=== PATIENT | male | born 1955 | race Hispanic/Latino ===

== ENCOUNTER 2017-07-24 12:15 | Emergency (ER) | payer BC ==
[2017-07-24 12:25] VITALS: BMI 32.8
[2017-07-24 12:33] VITALS: PULSE 87; TEMP 98.9; O2SAT 97
[2017-07-24] MEDS ORDERED: Sodium Chloride 0.9% 1,000 ML IV STA (12:49)
--- NOTE | 2017-07-24 12:54 | ED PDOC ---
Arrival/HPI - General Chief Complaint: GI Problem Time Seen by Provider: 07/24/17 12:29 Historian: Patient - History of Present Illness Narrative History of Present Illness (Text): you were treated in the ED today for eating a lot of spinich a few days ago with dry retching, then noted right lower back pain with blood in urine and fatigue otherwise without any nausea/vomiting/headache/dizziness/difficulty breathing/chest pain/abdomen pain/numbness/tingling/loss of limb or bowel or bladder function/pain with urination/trauma/injury/neck pain/loss of consciousness. refused sexual disease testing or treatment. 07/24/17 12:51 Time/Duration: 1 week Symptom Onset: Gradual Symptom Course: Unchanged Quality: Aching Severity Level: 1 Activities at Onset: Rest Context: Sitting Past Medical History - Provider Review Nursing Documentation Reviewed: Yes - Travel History Have you recently traveled outside [place] w/in the past 3 mons?: No - Renal Hx Kidney Stones: Yes - Psychiatric Hx Substance Use: No - Anesthesia Hx Anesthesia: No Family/Social History - Physician Review Nursing Documentation Reviewed: Yes Family/Social History: No Known Family HX Smoking Status: Never Smoked Hx Alcohol Use: No Hx Substance Use: No Allergies/Home Meds Allergies/Adverse Reactions: Allergies Sulfa (Sulfonamide Antibiotics) Allergy (Verified 07/24/17 12:28) RASH Home Medications: Home Meds Medication Instructions Recorded Confirmed No Known Home Med 07/24/17 07/24/17 Review of Systems - Review of Systems Constitutional: Fatigue Eyes: Normal ENT: Normal Respiratory: Normal Cardiovascular: Normal Gastrointestinal: Normal Genitourinary Male: Hematuria Musculoskeletal: Back Pain Neurological: Normal Endocrine: Normal Hemo/Lymphatic: Normal Psychiatric: Normal Physical Exam Vital Signs Reviewed: Yes Vital Signs Temp Pulse Resp BP Pulse Ox 07/24/17 12:33 98.9 F 87 17 139/86 97 Temperature: Afebrile Blood Pressure: Hypertensive Pulse: Regular Respiratory Rate: Normal Appearance: Positive for: Well-Appearing, Non-Toxic, Comfortable Pain Distress: None Mental Status: Positive for: Alert and Oriented X 3 - Systems Exam Head: Present: Atraumatic, Normocephalic Pupils: Present: PERRL Extroacular Muscles: Present: EOMI Conjunctiva: Present: Normal Ears: Present: Normal Mouth: Present: Moist Mucous Membranes Pharnyx: Present: Normal Nose (External): Present: Atraumatic Nose (Internal): Present: Normal Inspection Neck: Present: Normal Range of Motion Respiratory/Chest: Present: Clear to Auscultation, Good Air Exchange Cardiovascular: Present: Regular Rate and Rhythm Abdomen: No: Tenderness, Distention, Normal Bowel Sounds, Peritoneal Signs, Rebound, Guarding, McBurney's Point Tender, Rovsing's Sign Present, Hernias, Feeding Tubes, Ostomy Tubes, Mass/Organomegaly, Scars, Other Back: Present: Normal Inspection Upper Extremity: Present: Normal Inspection Lower Extremity: Present: Normal Inspection Neurological: Present: GCS=15, CN II-XII Intact, Speech Normal, Motor Func Grossly Intact Skin: Present: Warm, Normal Color Psychiatric: Present: Alert, Oriented x 3, Normal Insight, Normal Concentration Medical Decision Making ED Course and Treatment: you were treated in the ED today for eating a lot of spinich a few days ago with dry retching, then noted right lower back pain with blood in urine and fatigue otherwise without any nausea/vomiting/headache/dizziness/difficulty breathing/chest pain/abdomen pain/numbness/tingling/loss of limb or bowel or bladder function/pain with urination/trauma/injury/neck pain/loss of consciousness. refused sexual disease testing or treatment. You were otherwise breathing easily, smiling and talking easily, good strength/sensation, walking easily, clear lungs, no abdomen tenderness, no spinal or back tenderness/redness , no fever temp 98.9, stable heart rate 87, stable breathing rate 17, excellent oxygen level 97% room air, elevated blood pressure 139/86 which we recommend repeat in 2-3 days primary care office to determine further treatment, you have blood tests no infection count 11, stable blood level hemoglobin 15/platelets 207, stable chemistry, heart blood test negative less than 0.01, urine test no acute sign of infection, radiology ct ap showed no acute abnormality, ECG normal sinus rhythm, intravenous fluids, observation done in the ED with improvement, counselled to drink lots of fluids and monitor urine and thus discharged home . 1. Recommend follow-up primary care 2-3 days to review symptoms, referral to urology to review your symptoms for stated blood in urine and lab test protein in urine to ensure no complications/cancer development, referral to cardiology to review your symptoms, though you have no umbilical pain/tenderness - referral to surgery for small fat containing umbilical hernia to ensure further care. 2. If any worsening pain, fever, chills, nausea, vomiting, difficulty breathing, numbness, loss of limb function, pain with urination or any medical condition then return to the ED. Report Date : 07/24/2017 13:45:49 PROCEDURE: CT Abdomen and Pelvis without intravenous contrast Dictator : Anthony Leavitt MD IMPRESSION: No acute abnormality. No evidence of urinary calculus or urinary tract obstruction. 07/24/17 14:07 07/24/17 14:10 Reassessment Condition: Re-examined, Improved - Lab Interpretations Lab Results: 07/24/17 13:05 07/24/17 13:05 Lab Results 07/24/17 13:05: PT 11.6, INR 1.01, APTT 32.8 07/24/17 13:05: Sodium 143, Potassium 4.7, Chloride 105, Carbon Dioxide 29, Anion Gap 14, BUN 23 H, Creatinine 1.0, Est GFR ( Amer) > 60, Est GFR ( Non-Af Amer) > 60, Random Glucose 105, Calcium 10.1, Magnesium 2.1, Total Bilirubin 0.5, AST 31, ALT 40, Alkaline Phosphatase 77, Lactate Dehydrogenase 456, Total Creatine Kinase 345 H, CK-MB (CK-2) 3.2, CK-MB (CK-2) % Cancelled, Troponin I < 0.01, Total Protein 7.5, Albumin 4.4, Globulin 3.2, Albumin/ Globulin Ratio 1.4, Lipase 85 07/24/17 13:05: Urine Color Yellow, Urine Appearance Clear, Urine pH 6.0, Ur Specific [place] >= 1.030, Urine Protein Trace H, Urine Glucose (UA) Negative, Urine Ketones Negative, Urine Blood Negative, Urine Nitrate Negative, Urine Bilirubin Negative, Urine Urobilinogen 0.2, Ur Leukocyte Esterase Negative, Urine RBC Negative, Urine WBC 1 - 3, Ur Epithelial Cells None, Amorphous Sediment Few, Urine Bacteria Mod, Urine Other Fiber 07/24/17 13:05: WBC 11.8 H, RBC 5.12, Hgb 15.7, Hct 45.4, MCV 88.7, MCH 30.7, MCHC 34.6, RDW 14.7 H, Plt Count 207, MPV 10.8, Gran % 64.9, Lymph % (Auto) 24.6 , [place] % (Auto) 7.8 H, Eos % (Auto) 2.5, Baso % (Auto) 0.2, Gran # 7.64 H, Lymph # (Auto) 2.9, [place] # (Auto) 0.9 H, Eos # (Auto) 0.3, Baso # (Auto) 0.02 I have reviewed the lab results: Yes - RAD Interpretation Radiology Orders: 07/24/17 12:49 ABDOMEN & PELVIS [ABD & PELVIS W/O PO OR IV CONT] [CT] Stat Records Officer: Radiologist (see mdm) - EKG Interpretation Interpreted by ED Physician: Yes (NSR, flippe t waves avr, flattened iii.) Type: 12 lead EKG - Medication Orders Current Medication Orders: Discontinued Medications Sodium Chloride (Sodium Chloride 0.9%) 1,000 mls @ 999 mls/hr IV .Q1H1M STA Stop: 07/24/17 13:49 Last Admin: 07/24/17 13:10 Dose: 999 mls/hr eMAR Start Stop Document 07/24/17 13:10 HI (Rec: 07/24/17 13:10 HI [id number]) Intravenous Solution Start Date 07/24/17 Start Time 13:10 NIHSS Stroke Scale 3 - Date/Time Evaluation Performed Date Performed: 07/24/17 When Was NIHSS Performed: Baseline - How Severe is the Stroke Level of Consciousness: 0=Alert LOC to Questions: 0=Both comments correct LOC to commands: 0=Obeys both correctly Best Gaze: 0=Normal Visual: 0=No visual loss Facial: 0=Normal Motor Arm - Left: 0=No drift Motor Arm - Right: 0=No drift Motor Leg - Left: 0=No drift Motor Leg - Right: 0=No drift Limb Ataxia: 0=Absent Sensory: 0=Normal Best Language: 0=No aphasia Dysarthia: 0=Normal articulation Extinction & Inattention (Neglect): 0=Normal, no object Score: 0 Disposition/Present on Arrival - Present on Arrival Any Indicators Present on Arrival: No History of DVT/PE: No History of Uncontrolled Diabetes: No Urinary Catheter: No History of Decub. Ulcer: No History Surgical Site Infection Following: None - Disposition Have Diagnosis and Disposition been Completed?: Yes Diagnosis: Hematuria Disposition: HOME/ ROUTINE Disposition Time: 14:13 Patient Plan: Discharge Condition: IMPROVED Discharge Instructions (ExitCare): Blood in the Urine (Hematuria), Adult (DC) Additional Instructions: you were treated in the ED today for eating a lot of spinich a few days ago with dry retching, then noted right lower back pain with blood in urine and fatigue otherwise without any nausea/vomiting/headache/dizziness/difficulty breathing/chest pain/abdomen pain/numbness/tingling/loss of limb or bowel or bladder function/pain with urination/trauma/injury/neck pain/loss of consciousness. refused sexual disease testing or treatment. You were otherwise breathing easily, smiling and talking easily, good strength/sensation, walking easily, clear lungs, no abdomen tenderness, no spinal or back tenderness/redness , no fever temp 98.9, stable heart rate 87, stable breathing rate 17, excellent oxygen level 97% room air, elevated blood pressure 139/86 which we recommend repeat in 2-3 days primary care office to determine further treatment, you have blood tests no infection count 11, stable blood level hemoglobin 15/platelets 207, stable chemistry, heart blood test negative less than 0.01, urine test no acute sign of infection, radiology ct ap showed no acute abnormality, ECG normal sinus rhythm, intravenous fluids, observation done in the ED with improvement, counselled to drink lots of fluids and monitor urine and thus discharged home . 1. Recommend follow-up primary care 2-3 days to review symptoms, referral to urology to review your symptoms for stated blood in urine and lab test protein in urine to ensure no complications/cancer development, referral to cardiology to review your symptoms, though you have no umbilical pain/tenderness - referral to surgery for small fat containing umbilical hernia to ensure further care. 2. If any worsening pain, fever, chills, nausea, vomiting, difficulty breathing, numbness, loss of limb function, pain with urination or any medical condition then return to the ED. Referrals: Larisa Pugh MD [Primary Care Provider] - Follow up with primary Forms: [employer] ([place])
[2017-07-24 13:22] LABS: BASO # 0.02 K/mm3 (0.0-2.0); BASO % 0.2 % (0.0-3.0); EOS # 0.3 (0.0-0.7); EOS % 2.5 % (1.5-5.0); GRAN # 7.64 (1.4-6.5); GRAN % 64.9 % (50.0-68.0); HEMOGLOBIN 15.7 g/dL (14.0-18.0); LYMPH # 2.9 (1.2-3.4); LYMPH % 24.6 % (22.0-35.0); MEAN CELL VOLUME 88.7 fl (80.0-105.0); MEAN CORPUSCULAR HEMOGLOBIN 30.7 pg (25.0-35.0); MEAN CORPUSCULAR HGB CONC 34.6 g/dl (31.0-37.0); MEAN PLATELET VOLUME 10.8 fl (7.0-11.0); MONO # 0.9 (0.1-0.6); MONO % 7.8 % (1.0-6.0); RBC 5.12 10^6/uL (3.5-6.1); RED CELL DISTRIBUTION WIDTH 14.7 % (11.5-14.5); URINE BILIRUBIN NEGATIVE (NEGATIVE); URINE BLOOD NEGATIVE (NEGATIVE); URINE GLUCOSE (UA) NEGATIVE (NEGATIVE); URINE LEUKOCYTE ESTERASE NEGATIVE Leu/uL (NEGATIVE); URINE PROTEIN TRACE mg/dL (<30 mg/dL); URINE UROBILINOGEN 0.2 E.U./dL (<1 E.U./dL); WHITE BLOOD COUNT 11.8 10^3/ul (4.5-11.0)
[2017-07-24 13:26] LABS: URINE APPEARANCE CLEAR (CLEAR); URINE COLOR YELLOW (YELLOW)
[2017-07-24 13:33] LABS: URINE AMORPHOUS SEDIMENT FEW; URINE BACTERIA MOD (NEG); URINE RBC NEGATIVE /hpf (0-2)
[2017-07-24 13:34] LABS: ALB/GLOB RATIO 1.4 (1.1-1.8); ALBUMIN 4.4 g/dL (3.0-4.8); ALT/SGPT 40 U/L (7-56); AST/SGOT 31 U/L (17-59); BLOOD UREA NITROGEN 23 mg/dL (7-21); CALCIUM 10.1 mg/dL (8.4-10.5); GFR AFRICAN-AMERICAN > 60; GFR NON-AFRICAN AMERICAN > 60; INR 1.01 (0.93-1.08); LIPASE 85 U/L (23-300); PARTIAL THROMBOPLASTIN TIME 32.8 Seconds (25.1-36.5); PROTHROMBIN TIME 11.6 SECONDS (9.4-12.5)
[2017-07-24 13:46] LABS: TROPONIN I < 0.01 ng/mL
--- NOTE | 2017-07-24 13:47 | CT ---
PROCEDURE: CT Abdomen and Pelvis without intravenous contrast HISTORY: 61yoM, with stated having hematuria/back pain COMPARISON: None. TECHNIQUE: Without contrast.. Contrast Dose: 0 Radiation dose: Total exam DLP = 923.48 mGy-cm. This CT exam was performed using one or more of the following dose reduction techniques: Automated exposure control, adjustment of the mA and/or kV according to patient size, and/or use of iterative reconstruction technique. FINDINGS: LOWER THORAX: Unremarkable. LIVER: Unremarkable. No gross lesion or ductal dilatation. GALLBLADDER AND BILE DUCTS: Unremarkable. PANCREAS: Unremarkable. No gross lesion or ductal dilatation. SPLEEN: Unremarkable. ADRENALS: Unremarkable. No mass. KIDNEYS AND URETERS: Unremarkable. No hydronephrosis. No solid mass. VASCULATURE: Unremarkable. No aortic aneurysm. BOWEL: Scattered diverticulae of descending and sigmoid colon. No evidence of diverticulitis. No bowel obstruction. APPENDIX: Unremarkable. Normal appendix. PERITONEUM: No ascites. No pneumoperitoneum. Very small umbilical hernia containing only mesenteric fat. LYMPH NODES: Unremarkable. No enlarged lymph nodes. BLADDER: Nondistended REPRODUCTIVE: Unremarkable prostate BONES: No acute fracture. OTHER FINDINGS: None. IMPRESSION: No acute abnormality. No evidence of urinary calculus or urinary tract obstruction.
[2017-07-24 13:52] LABS: CK-MB 3.2 ng/mL (0.0-3.6)
[2017-07-24 14:30] VITALS: BP 137/83; RESP 18
--- NOTE | 2017-07-24 20:44 | CARD ---
APPROVED REPORT EKG Measurement Heart [id number] 128P28 [id number] <Conclusion> Normal sinus rhythm Left anterior fascicular block Abnormal ECG
== END 2017-07-24 14:52 | disposition home or self-care (01) ==
LOC: ED 12:15
DX: R31.9 Hematuria, unspecified (principal)
CPT/HCPCS: 74176; 80053; 81001; 82550; 82553; 83615; 83690; 83735; 84484; 85025; 85610; 85730; 87086; 93005; 99283; J7040

== ENCOUNTER 2017-09-05 06:43 | Emergency (ER) | payer BC ==
[2017-09-05 06:43] VITALS: BMI 32.8
[2017-09-05 06:54] VITALS: RESP 18
[2017-09-05] MEDS ORDERED: Sodium Chloride 0.9% 1,000 ML IV STA (07:29)
--- NOTE | 2017-09-05 07:31 | ED PDOC ---
Arrival/HPI - General Chief Complaint: Medical Clearance Time Seen by Provider: 09/05/17 07:19 Historian: Patient - History of Present Illness Narrative History of Present Illness (Text): 09/05/17 07:28 A 61 year old male presents to the emergency department complaining of nausea and non-bilious non-bloody vomiting since 03:00 this morning. Patient reports generalized weakness and dark stool. Patient denies any fever, chills, abdominal pain, urinary symptoms, back pain, chest pain, shortness of breath, cough or any other complaints. PMD: Dr. Panda Pugh Time/Duration: Other (03:00 this morning) Symptom Course: Unchanged Context: Home Past Medical History - Provider Review Nursing Documentation Reviewed: Yes - Renal Hx Kidney Stones: Yes - Musculoskeletal/Rheumatological Other/Comment: swelling left knee - Psychiatric Hx Substance Use: No - Anesthesia Hx Anesthesia: No Family/Social History - Physician Review Nursing Documentation Reviewed: Yes Family/Social History: No Known Family HX Smoking Status: Never Smoked Hx Alcohol Use: No Hx Substance Use: No Allergies/Home Meds Allergies/Adverse Reactions: Allergies Sulfa (Sulfonamide Antibiotics) Allergy (Verified 09/05/17 06:54) RASH Home Medications: Home Meds Medication Instructions Recorded Confirmed Indomethacin [Indocin] 50 mg PO TID 09/05/17 09/05/17 Review of Systems - Physician Review All systems were reviewed & negative as marked: Yes - Review of Systems Constitutional: absent: Fevers, Night Sweats Respiratory: absent: SOB, Cough Cardiovascular: absent: Chest Pain Gastrointestinal: Nausea, Vomiting. absent: Abdominal Pain Genitourinary Male: absent: Dysuria, Frequency, Hematuria Musculoskeletal: absent: Back Pain Physical Exam - Physical Exam Narrative Physical Exam (Text): Constitutional: No acute distress. Bucket of non-bloody, non coffee ground emesis at bedside. Head: Normocephalic. Atraumatic. Eyes: PERRL. ENT: Moist mucous membranes. Neck: Supple. Cardiovascular: Regular rate. Chest: No tenderness. Respiratory: Clear to auscultation bilaterally. GI: Soft. Nontender. Nondistended. Rectal: Guaiac negative. Back: No CVA tenderness. Musculoskeletal: No tenderness or swelling of extremities. Skin: No rash. Neurologic: Alert, no focal deficit. Vital Signs Reviewed: Yes Vital Signs Temp Pulse Resp BP Pulse Ox 09/05/17 11:21 98 F 78 18 177/89 H 100 09/05/17 11:16 98 F 78 18 177/89 H 100 09/05/17 10:20 88 18 172/91 H 99 09/05/17 08:15 60 18 139/84 98 09/05/17 08:04 97.6 F 09/05/17 06:51 97.4 F L 58 L 18 100 Temperature: Afebrile Blood Pressure: Hypertensive Pulse: Regular Respiratory Rate: Normal Appearance: Positive for: Well-Appearing, Non-Toxic, Comfortable Pain Distress: None Mental Status: Positive for: Alert and Oriented X 3 Medical Decision Making ED Course and Treatment: 09/05/17 07:28 Impression: A 61 year old male with nausea and vomiting without abdominal tenderness. Differential Diagnosis included but are not limited to: Gastroenteritis vs. GI bleed/Gastric ulcer Plan: -- Chest xray -- EKG -- Labs -- Urinalysis -- Zofran and IV fluids -- Reassess and disposition Progress Notes: 09/05/17 08:01 Chest xray read and interpreted by me, which shows no acute disease. Labs unremarkable, nonspecific mild leukocytosis. PO challenged without vomiting. Discharged home, patient states will see his PMD today, instructed to return to the ED for development of pain, intractible vomiting, or fever. - Lab Interpretations Lab Results: 09/05/17 07:28 09/05/17 07:28 Lab Results 09/05/17 09:50: Influenza Typ A,B (EIA) Negative for flu a/b 09/05/17 09:40: Blood Type Confirm O POSITIVE 09/05/17 07:28: Sodium 145, Potassium 4.3, Chloride 108 H, Carbon Dioxide 20 L, Anion Gap 21 H, BUN 20, Creatinine 0.9, Est GFR ( Amer) > 60, Est GFR ( Non-Af Amer) > 60, Random Glucose 147 H, Calcium 10.0, Total Bilirubin 0.6, AST 28, ALT 31, Alkaline Phosphatase 111, Total Creatine Kinase 182, Troponin I < 0.01, Total Protein 7.9, Albumin 4.8, Globulin 3.1, Albumin/Globulin Ratio 1.5, Lipase 157 09/05/17 07:28: WBC 13.7 H, RBC 5.32, Hgb 16.6, Hct 46.0, MCV 86.5, MCH 31.2, MCHC 36.1, RDW 13.9, Plt Count 204, MPV 11.9 H, Gran % 86.7 H, Lymph % (Auto) 9.1 L, [place] % (Auto) 3.2, Eos % (Auto) 0.9 L, Baso % (Auto) 0.1, Gran # 11.92 H , Lymph # (Auto) 1.3, [place] # (Auto) 0.4, Eos # (Auto) 0.1, Baso # (Auto) 0.01 09/05/17 06:50: Blood Type O POSITIVE, Antibody Screen Negative, BBK History Checked No verified bt - RAD Interpretation Radiology Orders: 09/05/17 07:29 CHEST PORTABLE [RAD] Stat - Medication Orders Current Medication Orders: Discontinued Medications Sodium Chloride (Sodium Chloride 0.9%) 1,000 mls @ 999 mls/hr IV .Q1H1M STA Stop: 09/05/17 08:29 Last Admin: 09/05/17 07:20 Dose: 999 mls/hr eMAR Start Stop Document 09/05/17 07:20 PALMAA (Rec: 09/05/17 07:40 FROYLAN [id number]) Intravenous Solution Start Date 09/05/17 Start Time 07:20 End Date 09/05/17 End time 08:20 Total Infusion Time 60 Ondansetron HCl (Zofran Inj) 8 mg IVP STAT STA Stop: 09/05/17 07:30 Last Admin: 09/05/17 07:40 Dose: 8 mg IVP Administration Document 09/05/17 07:40 FROYLAN (Rec: 09/05/17 07:40 FROYLAN [id number]) Charges for Administration # of IVP Administrations 1 - Scribe Statement The provider has reviewed the documentation as recorded by the Nancy Self Provider Scribe Attestation: All medical record entries made by the Scribe were at my direction and personally dictated by me. I have reviewed the chart and agree that the record accurately reflects my personal performance of the history, physical exam, medical decision making, and the department course for this patient. I have also personally directed, reviewed, and agree with the discharge instructions and disposition. Disposition/Present on Arrival - Present on Arrival Any Indicators Present on Arrival: No History of DVT/PE: No History of Uncontrolled Diabetes: No Urinary Catheter: No History of Decub. Ulcer: No History Surgical Site Infection Following: None - Disposition Have Diagnosis and Disposition been Completed?: Yes Diagnosis: Nausea and vomiting Disposition: HOME/ ROUTINE Disposition Time: 10:47 Patient Plan: Discharge Condition: STABLE Discharge Instructions (ExitCare): Nausea and Vomiting, Adult Prescriptions: Ondansetron ODT [Zofran ODT] 1 tab PO Q8H PRN #12 odt PRN Reason: Nausea/Vomiting Forms: [facility] ([place]), WORK NOTE
[2017-09-05 07:49] LABS: BASO # 0.01 K/mm3 (0.0-2.0); BASO % 0.1 % (0.0-3.0); EOS # 0.1 (0.0-0.7); EOS % 0.9 % (1.5-5.0); GRAN # 11.92 (1.4-6.5); GRAN % 86.7 % (50.0-68.0); HEMOGLOBIN 16.6 g/dL (14.0-18.0); LYMPH # 1.3 (1.2-3.4); LYMPH % 9.1 % (22.0-35.0); MEAN CELL VOLUME 86.5 fl (80.0-105.0); MEAN CORPUSCULAR HEMOGLOBIN 31.2 pg (25.0-35.0); MEAN CORPUSCULAR HGB CONC 36.1 g/dl (31.0-37.0); MEAN PLATELET VOLUME 11.9 fl (7.0-11.0); MONO # 0.4 (0.1-0.6); MONO % 3.2 % (1.0-6.0); RBC 5.32 10^6/uL (3.5-6.1); RED CELL DISTRIBUTION WIDTH 13.9 % (11.5-14.5); WHITE BLOOD COUNT 13.7 10^3/ul (4.5-11.0)
[2017-09-05 07:58] LABS: ALB/GLOB RATIO 1.5 (1.1-1.8); ALBUMIN 4.8 g/dL (3.0-4.8); ALT/SGPT 31 U/L (7-56); AST/SGOT 28 U/L (17-59); BLOOD UREA NITROGEN 20 mg/dL (7-21); GFR AFRICAN-AMERICAN > 60; GFR NON-AFRICAN AMERICAN > 60; LIPASE 157 U/L (23-300)
[2017-09-05 08:10] LABS: TROPONIN I < 0.01 ng/mL
--- NOTE | 2017-09-05 08:19 | RAD ---
HISTORY: nausea and vomiting COMPARISON: No prior. FINDINGS: LUNGS: No active pulmonary disease. PLEURA: No significant pleural effusion identified, no pneumothorax apparent. CARDIOVASCULAR: No radiographic findings to suggest acute or significant cardiovascular disease. OSSEOUS STRUCTURES: No significant abnormalities. VISUALIZED UPPER ABDOMEN: Normal. OTHER FINDINGS: None. IMPRESSION: No active disease.
[2017-09-05 11:22] VITALS: BP 177/89; PULSE 78; TEMP 98; O2SAT 100
--- NOTE | 2017-09-05 14:50 | CARD ---
APPROVED REPORT EKG Measurement Heart [id number] 150P62 [id number] <Conclusion> Sinus bradycardia with sinus arrhythmia Left axis deviation NSSTW changes
== END 2017-09-05 11:21 | disposition home or self-care (01) ==
LOC: ED 06:43
DX: R11.2 Nausea with vomiting, unspecified (principal)
CPT/HCPCS: 71045; 80053; 82550; 83690; 84484; 85025; 86850; 86900; 87804; 93005; 96361; 96374; 99283; J2405; J7040